=== PATIENT | male | born 1970 | race Caucasian/White ===

== ENCOUNTER 2018-12-17 15:08 | Emergency (ER) | payer BC, OTHER ==
[2018-12-17] MEDS ORDERED: PROCHLORPERAZINE INJ 10 MG/2 ML VIAL IV ONE (15:48)
[2018-12-17] MEDS ORDERED: LACTATED RINGERS 1,000 ML IVS ONE (15:48)
--- NOTE | 2018-12-17 16:42 | ED.PDOC ---
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 Timing/Duration: getting worse, other - 2 days Severity: moderate Improving Factors: nothing Worsening Factors: nothing Associated Symptoms: other - see hpi Allergies/Adverse Reactions: Allergies NO KNOWN ALLERGY Allergy (Verified 12/17/18 18:57) Home Medications: Ambulatory Orders Valsartan 40 mg PO DAILY 12/17/18 Review of Systems - Review of Systems Constitutional: States: no symptoms reported EENTM: States: no symptoms reported Respiratory: States: no symptoms reported Cardiology: States: no symptoms reported Gastrointestinal/Abdominal: States: see HPI Genitourinary: States: no symptoms reported Musculoskeletal: States: other - muscle cramps Neurological: States: other - dizziness All other Systems: Reviewed and Negative, No Change from Baseline Past Medical History (General) - Patient Medical History Hx Hypertension: Yes Surgical History: cholecystectomy, other - abdomen Family Medical History - Family History Father Family History: Unknown Physical Exam - Physical Exam General Appearance: Alert, Comfortable, No apparent distress Eye Exam: bilateral normal Ears, Nose, Throat: hearing grossly normal, normal ENT inspection Neck: non-tender, full range of motion, supple, normal inspection Respiratory: chest non-tender, lungs clear, normal breath sounds, no respiratory distress Cardiovascular/Chest: normal peripheral pulses, regular rate, rhythm, no murmur Peripheral Pulses: radial,right: 2+, radial,left: 2+ Gastrointestinal/Abdominal: non tender, soft, no organomegaly Extremity: non-tender, no pedal edema, no calf tenderness Neurologic: alert, oriented x 3 Skin Exam: normal color, warm/dry Progress - Progress Progress: 12/17/18 20:54 Vital Signs - 8 hr 12/17/18 12/17/18 12/17/18 15:28 16:20 17:25 Temperature 97.4 F L Pulse Rate [ 85 88 84 Right Radial] Respiratory 20 20 20 Rate Blood Pressure 105/66 113/83 154/93 [Left Arm] O2 Sat by Pulse 94 L 97 94 L Oximetry 12/17/18 12/17/18 12/17/18 18:00 19:00 20:00 Temperature Pulse Rate [ 94 H 86 57 L Right Radial] Respiratory 18 18 18 Rate Blood Pressure 96/57 87/54 102/77 [Left Arm] O2 Sat by Pulse 95 94 L 93 L Oximetry - Results/Orders Results/Orders: Vital Signs - 24 hr 12/17/18 12/17/18 12/17/18 15:28 16:20 17:25 Temperature 97.4 F L Pulse Rate [ 85 88 84 Right Radial] Respiratory 20 20 20 Rate Blood Pressure 105/66 113/83 154/93 [Left Arm] O2 Sat by Pulse 94 L 97 94 L Oximetry 12/17/18 12/17/18 12/17/18 18:00 19:00 20:00 Temperature Pulse Rate [ 94 H 86 57 L Right Radial] Respiratory 18 18 18 Rate Blood Pressure 96/57 87/54 102/77 [Left Arm] O2 Sat by Pulse 95 94 L 93 L Oximetry Laboratory Tests 12/17/18 16:00 WBC 13.2 H RBC 5.51 Hgb 16.1 Hct 47.5 MCV 86.1 MCH 29.2 MCHC 33.9 RDW 14.5 Plt Count 280 MPV 7.6 Absolute Neuts (auto) 11.00 H Absolute Lymphs (auto) 1.10 Absolute Monos (auto) 1.00 H Absolute Eos (auto) 0.10 Absolute Basos (auto) 0.00 Neutrophils % 83.3 H Lymphocytes % 8.2 L Monocytes % 7.3 Eosinophils % 0.9 L Basophils % 0.3 PT 9.3 INR 0.93 PTT (SP) 27.6 Sodium 135 Potassium 4.5 Chloride 98 L Carbon Dioxide 23 Anion Gap 18.5 H BUN 42 H Creatinine 2.74 H BUN/Creatinine Ratio 15.3 Random Glucose 117 H Serum Osmolality 281.6 Calcium 9.5 Magnesium 2.4 Total Bilirubin 0.6 Direct Bilirubin < 0.1 Indirect Bilirubin 0.5 AST 40 ALT 58 Alkaline Phosphatase 71 Creatine Kinase 417 H* CK-MB (CK-2) 5.5 H* CK-MB (CK-2) % 1.32 Troponin I 0.03 Serum Total Protein 8.1 Albumin 5.1 - EKG/XRAY/CT XRAY: chest - no acute findings;pleural thickening Departure - Departure Clinical Impression: Dehydration symptoms Heat exhaustion, unspecified Qualifiers: Encounter type: initial encounter Qualified Code(s): T67.5XXA - Heat exhaustion, unspecified, initial encounter Time of Disposition: 20:57 Disposition: Discharge to Home or Self Care Departure Forms: ED Discharge - Pt. Copy, Patient Portal Self Enrollment Instructions: Heat Exhaustion and Heat Stroke (DC) Diet: other - dirnk extra fluids Activity: other - avoid stayin nad any exertional activity from 10 am-5pm during hot weather Home Medications: Ambulatory Orders Valsartan 40 mg PO DAILY 12/17/18 Additional Instructions: Return to Emergency room as needed;Continue with home medications
[2018-12-17] MEDS ORDERED: SODIUM CHLORIDE 0.9% 1000ML 1,000 ML IVS ONE (17:41)
--- NOTE | 2018-12-17 17:44 | RAD ---
EXAM: XR Abdomen, 2 Views CLINICAL HISTORY: n/v;previous abdominal surgery TECHNIQUE: Frontal view of the abdomen/pelvis with upright view of the abdomen. COMPARISON: No relevant prior studies available. FINDINGS: Limitations: None. Intraperitoneal space: No free air. Gastrointestinal tract: Diffuse moderate colonic stool present. No distention. Organs: Cholecystectomy clips present. Bones/joints: Degenerative changes present in the spine. IMPRESSION: No acute findings. Electronically signed by: Rosemary Baca MD 12/17/2018 5:43 PM CDT
--- NOTE | 2018-12-17 17:46 | RAD ---
EXAM: XR Chest, 1 View CLINICAL HISTORY: n/v;previous abdominal surgery TECHNIQUE: Frontal view of the chest. COMPARISON: Correlation made to abdominal series performed at the same time. FINDINGS: Limitations: None. Lungs: There is very mild bronchovascular thickening without definite consolidation. Pleural space: Blunting of the right lateral costophrenic sulcus compatible small pleural effusion noted. No pneumothorax. Heart: Unremarkable. No cardiomegaly. Mediastinum: Unremarkable. Bones/joints: Unremarkable. IMPRESSION: 1. Small right pleural effusion. 2. Acute and/or chronic mild bronchial thickening compatible with bronchitis. Electronically signed by: Rosemary Baca MD 12/17/2018 5:44 PM CDT
[2018-12-17 21:04] VITALS: BP 111/60; TEMP 97.3; O2SAT 98
== END 2018-12-17 21:02 | disposition home or self-care (01) ==
LOC: ER 15:08
DX: T67.5XXA Heat exhaustion, unspecified, initial encounter (principal); I10 Essential (primary) hypertension; Z90.49 Acquired absence of other specified parts of digestive tract
CPT/HCPCS: 36415; 71045; 74019; 80048; 80076; 81001; 82550; 82553; 84484; 85025; 85610; 85730; J0780; J7030; J7120